=== PATIENT | female | born 1995 | race Caucasian/White ===

== ENCOUNTER 2016-12-25 22:09 | Emergency (ER) | payer MEDICAID ==
[~2016-12-25] VITALS: Ht 160 cm; Wt 53.0 kg
[2016-12-25 22:36] VITALS: Ht 160 cm; Wt 53.0 kg
[2016-12-25] MEDS ORDERED: BEN25 PO (23:20)
[2016-12-25] MEDS ORDERED: HYDR28.340 TOP (23:20)
--- NOTE | 2016-12-25 23:25 | ERD ---
ER Documentation Chief Complaint Date/Time DATE: 12/25/16 TIME: 23:24 Chief Complaint "possible bed bugs" HPI Patient is a 21-year-old female who has bug bites on her bilateral lower and upper extremity since yesterday. She states they are itchy but she has not been scratching at them. No fever. No bleeding or drainage. She has not tried any medication for this. ROS All systems reviewed and are negative except as per history of present illness. Medications Home Meds Active Scripts Hydrocortisone* Topical (Hydrocortisone* Topical) 0.5%-28.35 Gm Cream..g., 1 APPLIC TOP BID for 7 Days, TUB Prov:RA MYERS PA-C 12/25/16 Diphenhydramine Hcl* (Benadryl*) 25 Mg Cap, 25 MG PO Q6, #30 CAP Prov:RA MYERS PA-C 12/25/16 Allergies Allergies: Coded Allergies: No Known Allergy (Unverified , 12/25/16) PMhx/Soc Hx Alcohol Use: No Hx Substance Use: No Hx Tobacco Use: No FmHx Family History: No diabetes Physical Exam Vitals Vital Signs Date Time Temp Pulse Resp B/P Pulse Ox O2 Delivery O2 Flow Rate FiO2 12/25/16 22:36 97.8 80 18 113/82 99 Physical Exam Const: [] Head: Atraumatic Eyes: Normal Conjunctiva ENT: Normal External Ears, Nose and Mouth. Neck: Full range of motion..~ No meningismus. Resp: Clear to auscultation bilaterally Cardio: Regular rate and rhythm, no murmurs Abd: Soft, non tender, non distended. Normal bowel sounds Skin: Multiple bug bite-like lesions on bilateral upper and lower extremities , non-erythematous, no warmth, no tenderness, no bleeding or drainage Procedures/MDM Patient is non-infected bug bites. She is given prescription for Benadryl and hydrocortisone cream. Recommended this patient follow up with her primary care doctor within 48 hours or return to the emergency room for any worsening of symptoms. However this time I do believe there is suitable for outpatient management. I answered all their questions and they agreed with the plan and were discharged home. Departure Diagnosis: Primary Impression: Bug bite Condition: Stable Patient Instructions: Insect Bite Additional Instructions: Call your primary care doctor TOMORROW for an appointment during the next 1-2 days.See the doctor sooner or return here if your condition worsens before your appointment time. RA MYERS PA-C Dec 25, 2016 23:25
== END 2016-12-26 00:18 | disposition home or self-care (01) ==
LOC: FTE 22:09
DX: S40.861A Insect bite (nonvenomous) of right upper arm, initial encounter (principal); S40.862A Insect bite (nonvenomous) of left upper arm, initial encounter; S80.861A Insect bite (nonvenomous), right lower leg, initial encounter; S80.862A Insect bite (nonvenomous), left lower leg, initial encounter; W57.XXXA Bitten or stung by nonvenomous insect and other nonvenomous arthropods, initial encounter; Y92.9 Unspecified place or not applicable
CPT/HCPCS: 99283

== ENCOUNTER 2017-05-03 18:14 | Emergency (ER) | payer BC, MEDICAID ==
[~2017-05-03] VITALS: Ht 154.9 cm; Wt 70.0 kg
[~2017-05-03 18:14] MED LIST: BEN25 PO; HYDR28.340 TOP
[2017-05-03 18:17] VITALS: Ht 154.9 cm; Wt 70.0 kg
[2017-05-03 21:08] LABS: ADD UMIC YES; UR ASCORBIC ACID NEGATIVE (NEGATIVE); UR BACTERIA FEW /HPF (NONE SEEN); UR BILIRUBIN (Dip) NEGATIVE (NEGATIVE); UR BLOOD (Dip) 3+ mg/dL (NEGATIVE); UR CLARITY CLEAR (CLEAR); UR COLOR STRAW (YELLOW); UR GLUCOSE (Dip) NEGATIVE (NEGATIVE); UR KETONES (Dip) NEGATIVE (NEGATIVE); UR LEUKOCYTE ESTERASE (Dip) NEGATIVE Leu/ul (NEGATIVE); UR NITRITE (Dip) NEGATIVE (NEGATIVE); UR RBC 1 /HPF (0-5); UR SPECIFIC GRAVITY (Dip) 1.005 (1.003-1.030); UR SQUAMOUS EPITHELIAL CELL FEW /HPF (FEW); UR TOTAL PROTEIN (Dip) NEGATIVE (NEGATIVE); UR UROBILINOGEN (Dip) NEGATIVE (NEGATIVE)
--- NOTE | 2017-05-03 21:32 | RADRPT ---
PROCEDURE: US Pelvis CLINICAL INDICATION: Pelvic pain TECHNIQUE: Sonographic evaluation of the pelvis was performed utilizing both transabdominal and tr ansvaginal technique. Curved array transabdominal transducer technique as well as a high frequency endovaginal probe was utilized. Images were reviewed on the high-resolution PACS workstation. COMPARISON: None available FINDINGS: The uterus is normal in size, echogenicity, and morphology measuring 6.2 x 3.2 x 3.4 cm in dimension . The uterus is anteverted in normal position. The endometrium measures 5.4 mm in diameter. The normal trilaminar stripe of the endometrium is preserved. The right ovary measures 2.7 x 1.6 x 2.1 cm in dimension, and demonstrates a 1.[address] The left ovary measures 2.8 x 1.4 x 1.8 cm in dimension. No ovarian torsion or adnexal mass is identified. Small amount of pelvic free fluid is seen. IMPRESSION: 1. Right ovary demonstrates a 1.5 cm corpus luteum cyst. 2. Nonspecific small amount of pelvic free fluid is present, likely physiologic. RPTAT: HDWR .Matt Roberto MD, Date Time Electronically viewed and signed by .Matt Roberto MD, MD on 05/03/2017 21:32 .R/
[2017-05-03] MEDS ORDERED: NITR-58 PO (22:16)
--- NOTE | 2017-05-03 22:26 | ERD ---
ER Documentation Chief Complaint Chief Complaint PELVIC PAIN WIT FOUL ODOR URINE HPI 21-year-old female patient with no significant past medical history presents to the ED complaining of left-sided pelvic pain that started 4 days ago. Patient reports that she always has a negative urinalysis is negative however the urine culture always comes back with positive for E. coli. Reports that she takes Macrobid, her symptoms improved. Denies any dysuria, urgency, frequency, hematuria, vomiting, chest pain, shortness of breath, wheezing, abdominal pain, melena, hematemesis. Reports that she is currently on her menses, is started on April 30, 2017. Reports that her last Pap smear was in November 2015 and it was normal. Reports that she is sexually active and had protected intercourse 2 weeks ago. Denies any pain with sexual intercourse. Denies any vaginal itching. Reports that she has a referral to see a urologist but is unsure when the appointment is. ROS All systems reviewed and are negative except as per history of present illness. Medications Home Meds Active Scripts Nitrofurantoin Monohyd Macrocr* (Macrobid*) 100 Mg Capsr, 100 MG PO BID for 7 Days, CAP Prov:LILIAM BARKLEY PA-C 05/03/17 Hydrocortisone* Topical (Hydrocortisone* Topical) 0.5%-28.35 Gm Cream..g., 1 APPLIC TOP BID for 7 Days, TUB Prov:RA MYERS PA-C 12/25/16 Diphenhydramine Hcl* (Benadryl*) 25 Mg Cap, 25 MG PO Q6, #30 CAP Prov:RA MYERS PA-C 12/25/16 Allergies Allergies: Coded Allergies: No Known Allergy (Unverified , 12/25/16) PMhx/Soc Medical and Surgical Hx: pt denies Medical Hx, pt denies Surgical Hx History of Surgery: No Anesthesia Reaction: No Hx Neurological Disorder: No Hx Respiratory Disorders: No Hx Cardiac Disorders: No Hx Psychiatric Problems: No Hx Miscellaneous Medical Probl: No Hx Alcohol Use: No Hx Substance Use: No Hx Tobacco Use: No Smoking Status: Never smoker Physical Exam Vitals Vital Signs Date Time Temp Pulse Resp B/P Pulse Ox O2 Delivery O2 Flow Rate FiO2 05/03/17 18:17 98.1 75 18 106/54 99 Physical Exam Const: [id number], well-nourished. In no acute distress. Head: Atraumatic, normocephalic Eyes: Normal Conjunctiva without injection. No purulent discharge. ENT: Normal external ear, nose. Moist oropharynx without tonsillar exudates. Non -erythematous pharynx. Uvula midline. No drooling. No trismus. Neck: No cervical midline tenderness. Full range of motion. No meningismus. No cervical lymphadenopathy. No JVD. Resp: Clear to auscultation bilaterally. No wheezing, rhonchi, rales, or crackles. No accessory muscle use. No retractions. Cardio: Regular rate and rhythm. No murmurs, rubs or gallops. Abd: Soft, left pelvic tenderness, non distended. Normal bowel sounds. No palpable masses. No rebound tenderness. No guarding. Negative McBurney's point. Negative psoas sign. Negative obturator sign. : See exam in MDM. Skin: No petechiae or rashes Back: No midline tenderness. No CVA tenderness. Ext: No cyanosis, or edema. Neur: Awake and alert. Normal gait. Normal coordination. Psych: Normal Mood and Affect Results 24 hrs Laboratory Tests Test 05/03/17 20:50 Urine Color STRAW Urine Clarity CLEAR Urine pH 7.0 Urine Specific [place] 1.005 Urine Ketones NEGATIVEmg/dL Urine Nitrite NEGATIVEmg/dL Urine Bilirubin NEGATIVEmg/dL Urine Urobilinogen NEGATIVEmg/dL Urine Leukocyte Esterase NEGATIVELeu/ul Urine Microscopic RBC 1/HPF Urine Microscopic WBC 2/HPF Urine Squamous Epithelial Cells FEW/HPF Urine Bacteria FEW/HPF Urine Hemoglobin 3+mg/dL Urine Glucose NEGATIVEmg/dL Urine Total Protein NEGATIVEmg/dl Chlamydia trachomatis RNA (TMA) NOT DETECTED Chlamydia/GC Comment SEE NOTE Neisseria gonorrhoeae RNA (TMA) NOT DETECTED Procedures/MDM This is a 21-year-old female patient with no significant past medical history presents to the ED complaining of left pelvic pain. Patient is afebrile and nontoxic-appearing. A pelvic ultrasound, pelvic exam, UA, urine culture, gonorrhea chlamydia test was ordered to further evaluate patient. Pending urine culture and gonorrhea and Chlamydia test. Urinalysis shows bacteria but no leukocyte esterase, 3+ hematuria. PROCEDURE: US Pelvis CLINICAL INDICATION: Pelvic pain TECHNIQUE: Sonographic evaluation of the pelvis was performed utilizing both transabdominal and transvaginal technique. Curved array transabdominal transducer technique as well as a high frequency endovaginal probe was utilized. Images were reviewed on the high-resolution PACS workstation. COMPARISON: None available FINDINGS: The uterus is normal in size, echogenicity, and morphology measuring 6.2 x 3.2 x 3.4 cm in dimension. The uterus is anteverted in normal position. The endometrium measures 5.4 mm in diameter. The normal trilaminar stripe of the endometrium is preserved. The right ovary measures 2.7 x 1.6 x 2.1 cm in dimension, and demonstrates a 1.5 cm corpus luteum cyst. The left ovary measures 2.8 x 1.4 x 1.8 cm in dimension. No ovarian torsion or adnexal mass is identified. Small amount of pelvic free fluid is seen. IMPRESSION: 1. Right ovary demonstrates a 1.5 cm corpus luteum cyst. 2. Nonspecific small amount of pelvic free fluid is present, likely physiologic. Caries pelvic exam Pelvic Exam: Water Technician present Abdomen: [Nontender] External Genitalia: [Normal Skin] Speculum: [Normal vaginal mucosa, normal cervical discharge] Bimanual: [No adnexal masses or tenderness, No CMT] Patient has a right ovarian cyst. Patient will be treated for a urinary tract infection. Low suspicion for symptomatic anemia, ectopic , sepsis, PID , appendicitis, ovarian torsion, tubo-ovarian abscess, surgical abdomen, or other emergent conditions. Patient was educated that there is a risk for threatened . Discharge medications: Macrobid Patient to follow up with [facility] in 2 days for further evaluation and treatment. Patient is to return sooner to the ED for any worsening symptoms. Patient's questions were answered. Patient understood and agreed with discharge plan. Departure Diagnosis: Primary Impression: Pelvic pain Condition: Stable Patient Instructions: Ovarian Cyst, Urine Culture Referrals: COMMUNITY CLINICS YOU HAVE RECEIVED A MEDICAL SCREENING EXAM AND THE RESULTS INDICATE THAT YOU DO NOT HAVE A CONDITION THAT REQUIRES URGENT TREATMENT IN THE EMERGENCY DEPARTMENT. FURTHER EVALUATION AND TREATMENT OF YOUR CONDITION CAN WAIT UNTIL YOU ARE SEEN IN YOUR DOCTORS OFFICE WITHIN THE NEXT 1-2 DAYS. IT IS YOUR RESPONSIBILITY TO MAKE AN APPOINTMENT FOR FOLOW-UP CARE. IF YOU HAVE A PRIMARY DOCTOR --you should call your primary doctor and schedule an appointment IF YOU DO NOT HAVE A PRIMARY DOCTOR YOU CAN CALL OUR PHYSICIAN REFERRAL HOTLINE AT IF YOU CAN NOT AFFORD TO SEE A PHYSICIAN YOU CAN CHOSE FROM THE FOLLOWING [facility] CL[facility]ICS [facility] [address] [facility] [address] [facility] [phone] [facility] [address] [facility] [phone] [facility] [facility] [address] [facility]. [facility] YOU HAVE RECEIVED A MEDICAL SCREENING EXAM AND THE RESULTS INDICATE THAT YOU DO NOT HAVE A CONDITION THAT REQUIRES URGENT TREATMENT IN THE EMERGENCY DEPARTMENT. FURTHER EVALUATION AND TREATMENT OF YOUR CONDITION CAN WAIT UNTIL YOU ARE SEEN IN YOUR DOCTORS OFFICE WITHIN THE NEXT 1-2 DAYS. IT IS YOUR RESPONSIBILITY TO MAKE AN APPOINTMENT FOR FOLOW- CARE. IF YOU HAVE A PRIMARY DOCTOR --you should call your primary doctor and schedule and appointment IF YOU DO NOT HAVE A PRIMARY DOCTOR YOU CAN CALL OUR PHYSICIAN REFERRAL HOTLINE AT . IF YOU CAN NOT AFFORD TO SEE A PHYSICIAN YOU CAN CHOSE FROM THE FOLLOWING [facility]: [facility] [address] [place] [address] [facility] [address] [place] [address] [facility] [address] [place] [address] [facility] URGENT CARE/SPECIALTIES [facility]CH[facility] [place] [address] [facility] [address] [place], [place] [phone] OFFICE FAX [facility] [address] [place] [address] [address] RIZVI FRESNO [address] [place], [place] [phone] [address] MCINTYRE, [facility] [address] [facility], [address] [address] [address] [address] [place], [place] [phone] [facility] [address] [place] [address] [facility] [id number] - HENRY NAIK [address], [facility] [phone] DR NUÑEZ, KRISTINA [address] [facility] [address], [facility] [phone] [address]NA [address] [address] [place], [place] [phone] [facility] Hours: 8:00 am - 5:00 pm Additional Instructions: Call your primary care doctor TOMORROW for an appointment during the next 2-3 days.See the doctor sooner or return here if your condition worsens before your appointment time. LILIAM BARKLEY PA-C May 03, 2017 22:26
== END 2017-05-03 22:43 | disposition home or self-care (01) ==
LOC: FTE 18:14
DX: R10.2 Pelvic and perineal pain (principal)
CPT/HCPCS: 76830; 76856; 81001; 87086; 87591; Z7502